=== PATIENT | female | born 1975 ===

== ENCOUNTER 2020-12-21 04:28 | Day surgery (SDC) | payer OTHER ==
[2020-12-19 12:02] VITALS: BMI 51.9
[2020-12-21 06:26] VITALS: TEMP 97.7
[2020-12-21 06:39] LABS: INR 1.02 (0.83-1.09); PROTHROMBIN TIME (PATIENT) 12.5 SEC (9.7-13.0)
[2020-12-21 06:42] LABS: ACTIVATED PTT 33.2 SECONDS (25.2-36.5)
[2020-12-21] MEDS ORDERED: MIDAZOLAM HCL 2 MG/2 ML SINGLE DOSE VIAL ONE (07:13)
[2020-12-21] MEDS ORDERED: PROPOFOL 20 ML ONE ×2 (07:13→08:34)
[2020-12-21] MEDS ORDERED: SUCCINYLCHOLINE CHLORIDE 200 MG/10 ML SYRINGE ONE (07:13)
[2020-12-21] MEDS ORDERED: LIDOCAINE HCL 1%, 10 MG/ML (20ML VIAL) ONE (07:33)
[2020-12-21] MEDS ORDERED: BUPIVACAINE HCL/PF 0.5% (5MG/ML) 10 ML VIAL ONE (07:33)
[2020-12-21] MEDS ORDERED: DEXAMETHASONE SOD PHOSPHATE 4 MG/1 ML VIAL ONE (08:14)
[2020-12-21] MEDS ORDERED: ceFAZolin SODIUM 1 GM VIAL IVPB ONE (08:20)
[2020-12-21] MEDS ORDERED: ceFAZolin SODIUM 1 GM VIAL ONE (08:22)
[2020-12-21] MEDS ORDERED: ONDANSETRON 4 MG/2 ML VIAL IVPUSH PRN (08:28)
[2020-12-21] MEDS ORDERED: oxyCODONE HCL 5 MG TABLET PO PRN (08:28)
[2020-12-21] MEDS ORDERED: LACTATED RINGERS SOLUTION 1,000 ML IV SCH (08:30)
[2020-12-21] MEDS ORDERED: LIDOCAINE HCL 1%, 10 MG/ML (20ML VIAL) INF ONE ×2 (08:32)
[2020-12-21] MEDS ORDERED: BUPIVACAINE HCL/PF 0.5% (5MG/ML) 10 ML VIAL IJ ONE ×2 (08:32)
[2020-12-21] MEDS ORDERED: KETOROLAC TROMETHAMINE 30 MG/1 ML VIAL ONE (08:42)
[2020-12-21 11:20] VITALS: BP 130/80; PULSE 88
== END 2020-12-21 10:15 | disposition home or self-care (01) ==
LOC: JASU-SURG 04:28
PROVIDERS: ATTEND Orthopaedic Surgery
PROC: 01N50ZZ Release Median Nerve, Open Approach (ICD-10-PCS; principal; 2020-12-21 08:00)
DX: G56.02 Carpal tunnel syndrome, left upper limb (principal)
CPT/HCPCS: 36415; 81025; 82962; 84703; 85610; 85730